=== PATIENT | female | born 1995 | race Caucasian/White ===

== ENCOUNTER 2020-08-15 00:04 | Emergency (ER) | payer BC ==
[~2020-08-15] VITALS: Ht 165.1 cm; Wt 79.4 kg
[2020-08-15] MEDS ORDERED: NORCO 5-325 TA1 EAC2 PO (01:08)
[2020-08-15] MEDS ORDERED: MOBIC15 MG PO (01:08)
[2020-08-15 01:53] VITALS: BP 103/64
== END 2020-08-15 01:57 | disposition home or self-care (01) ==
LOC: ER 00:04
DX: T24.211A Burn of second degree of right thigh, initial encounter (principal); X10.2XXA Contact with fats and cooking oils, initial encounter; Y93.89 Activity, other specified; Y92.89 Other specified places as the place of occurrence of the external cause; Y99.8 Other external cause status